=== PATIENT | male | born 1950 | race Two or more races ===

== ENCOUNTER 2017-05-30 11:14 | Observation (INO) | payer MEDICAID ==
[~2017-05-30] VITALS: Ht 182.9 cm; Wt 68.0 kg
[2017-05-30 12:42] LABS: Basophils # (auto) 0 uL; Basophils % (auto) 0.3 % (0.0-2.0); Eosinophils # (auto) 0 uL; Eosinophils % (auto) 0.1 % (0.0-7.0); Hematocrit 43.6 % (41.0-53.0); Hemoglobin 14.7 g/dL (13.5-17.5); Lymphocytes # (auto) 0.4 uL; Lymphocytes % (auto) 14.9 % (10.0-50.0); Mean Corpuscular Hemoglobin 31.5 pg (28.0-32.0); Mean Corpuscular Hgb Conc. 33.8 g/dL (32.0-36.0); Mean Corpuscular Volume 93.2 fL (80.0-100.0); Monocytes # (auto) 0.3 uL; Monocytes % (auto) 12.4 % (0.0-12.0); Neutrophils % (auto) 72.3 % (37.0-80.0); Nucleated Red Blood Cells % 0.2 %; Platelet Count (auto) 78 10^3/uL (140-450); Red Blood Cells 4.68 10^6/uL (4.5-5.90); Red Cell Distribution Width 13.1 % (11.8-14.3); White Blood Cell 2.8 10^3/uL (4.4-10.8)
[2017-05-30 13:05] LABS: Albumin 3.1 g/dL (3.4-5.0); Bilirubin, Total 0.6 mg/dL (0.2-1.0); Calcium 7.5 mg/dL (8.5-10.1); Potassium 5.1 mmol/L (3.5-5.1)
[2017-05-30] MEDS ORDERED: SODIUM CHLORIDE 0.9% 1,000 ML IVB ONE (15:04)
[2017-05-30] MEDS ORDERED: DEXTROSE (50%) 50ML SYRG IV ONE (15:15)
[2017-05-30 15:55] LABS: INR 1.03 (0.9-1.15); Partial Thromboplastin Time 34.3 sec (22.64-33.71); Prothrombin Time 11.2 sec (9.37-12.3)
[2017-05-30 18:20] LABS: Urine Bacteria NONE SEEN /hpf (None Seen); Urine Blood Negative /uL (Negative); Urine Hyaline Cast FEW /lpf (0 - 2); Urine Mucus FEW (None Seen); Urine Specific Gravity 1.025 (1.001-1.035); Urine WBC 2 /hpf (0 - 3)
[2017-05-30] MEDS ORDERED: SODIUM CHLORIDE 0.9% 1,000 ML IV ONE (19:45)
[2017-05-31 01:00] VITALS: BP 102/64
== END 2017-05-31 01:24 | disposition short-term general hospital (02) | DRG 52 ==
LOC: ER 11:14 → EDBD 11:14 → OVERFLOW 15:04 → ER 05-31 01:24
PROVIDERS: ADMIT Family Medicine; ATTEND Family Medicine
DX: G93.41 Metabolic encephalopathy (principal); D69.6 Thrombocytopenia, unspecified; I95.9 Hypotension, unspecified; I48.91 Unspecified atrial fibrillation; E16.2 Hypoglycemia, unspecified
CPT/HCPCS: 36415; 70450; 71010; 80053; 81001; 82962; 83605; 83735; 84484; 85025; 85610; 85730; 87040; 93005; 94761; 96361; 96374; 99285; G0378; J7030; J7042